=== PATIENT | male | born 1980 | race Caucasian/White ===

== ENCOUNTER 2016-12-08 07:58 | Emergency (ER) | payer OTHER | END 2016-12-08 10:01 | disposition home or self-care (01) | LOC: D.ER 07:58 | DX: M25.522 Pain in left elbow (principal); M25.532 Pain in left wrist; M25.562 Pain in left knee; M25.561 Pain in right knee; M25.572 Pain in left ankle and joints of left foot; M25.571 Pain in right ankle and joints of right foot; M54.5 Low back pain ==

== ENCOUNTER 2016-12-23 07:34 | Emergency (ER) | payer OTHER | END 2016-12-23 09:15 | disposition home or self-care (01) | LOC: D.ER 07:34 | DX: J02.9 Acute pharyngitis, unspecified (principal) ==

== ENCOUNTER 2016-12-24 09:29 | Emergency (ER) | payer OTHER | END 2016-12-24 10:21 | disposition home or self-care (01) | LOC: D.ER 09:29 | DX: T36.0X5A Adverse effect of penicillins, initial encounter (principal); T40.2X5A Adverse effect of other opioids, initial encounter; Y92.029 Unspecified place in mobile home as the place of occurrence of the external cause; J06.9 Acute upper respiratory infection, unspecified ==

== ENCOUNTER 2017-01-26 11:57 | Emergency (ER) | payer MEDICAID | END 2017-01-26 13:52 | disposition home or self-care (01) | LOC: D.ER 11:57 | DX: K52.9 Noninfective gastroenteritis and colitis, unspecified (principal); R10.9 Unspecified abdominal pain; F17.200 Nicotine dependence, unspecified, uncomplicated ==

== ENCOUNTER 2017-01-29 07:36 | Emergency (ER) | payer MEDICAID | END 2017-01-29 08:40 | disposition home or self-care (01) | LOC: D.ER 07:36 | DX: R19.7 Diarrhea, unspecified (principal); K08.89 Other specified disorders of teeth and supporting structures ==

== ENCOUNTER 2020-05-05 12:44 | Emergency (ER) | payer MEDICARE, MEDICAID ==
[~2020-05-05] VITALS: Ht 172.7 cm; Wt 104.5 kg
[2020-05-05 12:51] VITALS: Ht 172.7 cm; Wt 104.5 kg
[2020-05-05] MEDS ORDERED: HYDROCODON-ACE1 EA10 PO (12:54)
[2020-05-05] MEDS ORDERED: ULTRAM50 MG PO (12:55)
[2020-05-05 13:17] LABS: BASOPHILS 0.1 % (0-2); EOSINOPHILS 2.4 % (0-7); HEMOGLOBIN 15.1 g/dL (13.5-17.5); IMMATURE GRANULOCYTES 0.2 % (0-5); LYMPHOCYTE ABS# 2.25 10x3/uL (1.32-3.57); LYMPHOCYTES 25.4 % (15-50); MCH 27.1 pg (26.0-34.0); MCHC 32.8 g/dL (31.0-37.0); MCV 82.6 fL (80.0-100.0); MEAN PLATELET VOLUME 10.9 fL (7.4-10.4); MONOCYTES 7.4 % (2-11); NEUTROPHIL ABS# 5.71 10x3/uL (1.78-5.38); NEUTROPHILS 64.5 % (40-80); PLATELET COUNT 193 10x3/uL (130-400); RBC 5.57 10x6/uL (4.20-6.10); RDW 13.1 % (11.5-14.5); WBC 8.9 10x3/uL (4.8-10.8)
[2020-05-05 13:21] LABS: INR 1.06 (0.85-1.17); PROTIME 12.7 SECONDS (11.6-15.0)
[2020-05-05 13:22] LABS: D-DIMER-QUANTITATIVE < 0.27 ug/mLFEU (0.20-0.54)
[2020-05-05 13:39] LABS: CALC OSMOLALITY 278 mosm/kg (275-300); CALCIUM 9.1 mg/dL (8.5-10.1); CARBON DIOXIDE 24.5 mmol/L (21.0-32.0); CHLORIDE - SERUM 102 mmol/L (98-107); CREATININE - SERUM 1.3 mg/dL (0.6-1.3); GLUCOSE 153 mg/dL (74-106); POTASSIUM - SERUM 3.9 mmol/L (3.5-5.1); SODIUM 137 mmol/L (136-145); UREA NITROGEN 18 mg/dL (7-18); eGFR NON AFRICAN AMERICAN 65 mL/min (90-120)
[2020-05-05 13:55] LABS: ALBUMIN 3.9 g/dL (3.4-5.0); ALKALINE PHOSPHATASE 98 U/L (30-120); ALT (SGPT) 122 U/L (10-68); BILIRUBIN - TOTAL 0.43 mg/dL (0.2-1.3); CKMB 0.2 U/L (0.0-3.6); CREATINE KINASE 93 UL (21-232); TROPONIN-I < 0.017 ng/mL (0.000-0.060)
[2020-05-05 14:03] VITALS: BP 130/96
[2020-05-05] MEDS ORDERED: HYDROCODONE-AC1 EAC2 PO (16:31)
== END 2020-05-05 16:55 | disposition home or self-care (01) ==
LOC: D.ER 12:44
PROVIDERS: Family Medicine
DX: I71.2 Thoracic aortic aneurysm, without rupture (principal); R07.89 Other chest pain; I10 Essential (primary) hypertension; J45.909 Unspecified asthma, uncomplicated; Z72.0 Tobacco use

== ENCOUNTER → 2020-05-21 13:06 | Outpatient (CLI) | payer MEDICARE ==
[2020-05-05 12:51] VITALS: BMI 35.0
--- NOTE | ~2020-05-21 | ST ---
PATIENT:JUDIT CAMPOS MEDICAL RECORD: [id number] SEX: M LOCATION:[facility] ORDER #: ADMISSION DATE: 05/21/20 AGE OF PATIENT: 39 REFERRING PHYSICIAN: INTERPRETING PHYSICIAN: KAHLIL SANTIAGO MD DATE OF SERVICE: 05/21/2020 PROCEDURE: Treadmill stress test. Baseline ECG is normal. Exercised for 4 minutes on Herminio protocol. Maximum heart rate 142 beats per minute, less than 85% max predicted. No ECG changes of ischemia. No symptoms of ischemia. Test terminated due to arthritic pain. IMPRESSION: Indeterminate treadmill stress test. Consider Cardiolite stress testing if clinically indicated. TRANSINT:[id number] Voice Confirmation ID: [id number] DOCUMENT ID: [id number] KAHLIL SANTIAGO MD CC: [id number] DICTATION DATE: 05/22/20 08 VENDING ENTERPRISES SUPERVISOR: 05/22/20 0932 DEP CLI 05/21/20 [id number] [place] [address]
--- NOTE | ~2020-05-21 | EC ---
PATIENT:JUDIT CAMPOS DATE OF SERVICE: 05/21/20 SEX: M MEDICAL RECORD: [id number] DATE OF : 82 [facility] AGE OF PATIENT: 39 ADMISSION DATE: 05/21/20 REFERRING PHYSICIAN: INTERPRETING PHYSICIAN: KAHLIL SANTIAGO MD ECHOCARDIOGRAM REPORT ECHO CHARGES 4 ECHO COMPLETE Date: 05/21/20 CLINICAL DIAGNOSIS: HEART MURMUR ECHOCARDIOGRAPHIC MEASUREMENTS (adult normal given) AC root (d.<3.7cm) 3.2 cm LV Septum d (<1.2 cm> 1.1 cm Valve Excursion 1.8 cm LV Septum (systole) 1.7 cm Left Atria (s.<4.0cm> 3.7 cm LVPW d(<1.2cm) 1.4 cm RV (d.<2.3cm) 4.0 cm LVPW (sytole) 1.8 cm LV diastole(<5.6CM) 4.9 cm MV E-F(>70mm/sec) cm LV systole 2.5 cm LVOT Diameter 2.2 cm MV exc.(>10mm) 1.4 cm Est.ejection fraction (50-75%) % DOPPLER: LVIT cm/sec A 62.0 cm/sec E 67.0 cm/sec LA cm/sec RVSP 29 mmHg LVOT 89 cm/sec AOP1/2T m/s Asc. Ao 158 cm/sec RVOT cm/sec RA cm/sec PA 138 cm/sec AV Gradient Peak 9.99 mmHg AV Mean 5.47 mmHg AV Area 2.6 cm MV Gradient Peak 2.69 mmHg MV Mean 0.86 mmHg MV Area cm COMMENTS: Supervisor Air Conditioning Installer: 2 ELVER DOWNING Business Continuity Manager: 3 Dr. Cook TAPE# PACS Pericardial Effusion N DATE OF SERVICE: Adequate 2D, color-flow imaging, spectral Doppler, and M-Mode FINDINGS: Borderline LVH. LV internal dimension is normal. Wall motion is normal. EF is greater than or equal to 55%. Aortic valve is tricuspid. No evidence of stenosis by Doppler interrogation. Left atrium is normal. Mitral valve shows no prolapse. Trace MR. Right side is grossly normal Trace TR. TRANSINT:[id number] Voice Confirmation ID: [id number] DOCUMENT ID: [id number] ECHOCARDIOGRAM REPORT [id number] ANDRES,JUDITKAHLIL LOAIZA MD CC: [id number] DICTATION DATE: 05/23/20 0852 MICA LAMINATING MACHINE FEEDER: 05/23/2017 DEP CLI 05/21/20 [address] [place] [address]
[~2020-05-21 13:06] MED LIST: HYDROCODON-ACE1 EA10 PO; HYDROCODONE-AC1 EAC2 PO; ULTRAM50 MG PO
== END | disposition home or self-care (01) ==
LOC: D.HCCECHO 13:06
PROVIDERS: ATTEND Internal Medicine Interventional Cardiology
DX: R01.1 Cardiac murmur, unspecified (principal); I71.2 Thoracic aortic aneurysm, without rupture; R07.9 Chest pain, unspecified

== ENCOUNTER → 2020-05-29 09:23 | Outpatient (CLI) | payer MEDICARE ==
[2020-05-05 12:51] VITALS: BMI 35.0
== END | disposition home or self-care (01) ==
LOC: D.HCCARDIO 09:23
PROVIDERS: ATTEND Internal Medicine Cardiovascular Disease
DX: I20.9 Angina pectoris, unspecified (principal)

== ENCOUNTER 2020-06-11 07:38 | Day surgery (SDC) | payer MEDICARE ==
[~2020-06-11] VITALS: Ht 172.7 cm; Wt 102.2 kg
--- NOTE | ~2020-06-11 | HEMODYNAMI ---
PATIENT:JUDIT CAMPOS MEDICAL RECORD: [id number] : 82 LOCATION:[facility] ADMISSION DATE: 06/11/20 Generatedon:112:48 Patient name: JUDIT CAMPOS Patient #: [id number] SSN: : 1980 Date of study: 06/11/2020 Page: Of Hemodynamic Procedure Report Patient Data Patient Demographics Procedure consent was obtained First Name: JUDIT Gender: Male Last Name: ANDRES : 1980 Middle Initial: SHANE Age: 40 year(s) Patient #: [id number] Race: Unknown Additional ID: [id number] Contact details Address: [address] [place] [address] State: [place] City: [place] Zip code: [address] Past Medical History Allergies Allergen Reaction Date Comments Reported Other allergy 06/11/2020 PCN Admission Admission Data Admission Date: 06/11/2020 Admission Time: 7:38 Lab Results Lab Result Date: 06/11/2020 Lab Result Time: 0:00 Biochemistry Name Units Result Min Max BUN mg/dl 17 --(---*)-- 7 18 Creatinine mg/dl 1.2 --(---*)-- 0.6 1.3 eGFR ml/min 72 *-(----)-- 90 120 NONAFRICAN Procedure Procedure Types Cath Procedure Diagnostic Procedure C [facility] w/Coronaries FFR/IVUS FFR Initial Aortic Root Angiography Sedation Charges Moderate Sedation 25-39 minutes PCI Procedure Coronary Stent Coronary Stent Initial Hemochron ACT Test Procedure Description Procedure Date Procedure Date: 06/11/2020 Procedure Start Time: 9:53 Procedure End Time: 10:25 Procedure Staff Name Function Shannon Fischer RN Nurse Alejo Sams MD Performing Physician Marija Carreon RT Monitor Jill Hernandez RT Scrub Procedure Data Cath Procedure Fluoroscopy Diagnostic fluoroscopy Total fluoroscopy Time: 4.2 time: 4.2 min min Diagnostic fluoroscopy Total fluoroscopy dose: 744 dose: 744 mGy mGy Contrast Material Contrast Material Type Amount (ml) Isovue 300 159 Entry Location Entry Primary Successful Side Size Upsize Upsize Entry Closure Succes sful Closure Location (Fr) 1 (Fr) 2 (Fr) Remarks Device Remarks Femoral Right 5 Fr 6 Fr Exoseal artery Short Estimated blood loss: 10 ml Diagnostic catheters Device Type Used For End Catheter Placement MULTIPACK JL 4.0 5Fr Procedure catheter DIAGNOSTIC JL 5 5Fr Procedure catheter ([id number]) MULTIPACK 3DRC 5Fr Procedure catheter MULTIPACK Pigtail 5 Fr Procedure catheter Procedure Complications No complications Procedure Medications Medication Administration Route Dosage Oxygen etCO2 Nasal cannula 2 l/min Lidocaine 2% added to field 20 Heparin Flush Bag added to field 2 bags (1000units/500ml NS) 0.9% NaCl I.V. 100 ml/hr Versed I.V. 2 mg Fentanyl I.V. 100 mcg Versed I.V. 2 mg Fentanyl I.V. 100 mcg Heparin Bolus I.V. 5000 units Integrilin (Bolus I.V. 9 ml 2mg/ml) Versed I.V. 2 mg Fentanyl I.V. 50 mcg Plavix P.O. 600 mg Hemodynamics Rest Heart Rate: 67 (bpm) Pressure Samples Time Site Value (mmHg) Purpose Heart Use Rate(bpm) 10:00 LV 112/10,8 Snapshot 82 10:00 LV 126/16,13 Pullback 82 10:00 AO 114/77(93) Pullback 82 Gradients Valve Time Site 1 Site 2 Mean SEP/DFP Peak To Heart Use (mmHg) (sec/min) Peak Rate (mmHg) (bpm) Aortic 10:00 LV AO 2 15 12 82 126/16,13 114/77(93) Calculations Valve P-P Mean Valve Index Valve Source Name Gradient Area Flow (cm2) Aortic 12 2 12 2 Snapshots Pre Cath Intra NCS Post Cath Vital Signs Time Heart Resp SPO2 etCO2 NIBP (mmHg) Rhythm Pain Sedation Rate (ipm) (%) (mmHg) Status Level (bpm) 9:43:39 68 14 99 0 137/78(96) NSR 0 (11) 10(A) , No pain 9:48:14 80 12 97 39.5 125/71(100) NSR 0 (11) 10(A) , No pain 9:52:44 73 11 95 19.3 119/72(92) NSR 0 (11) 9(A) , No pain 9:57:06 70 11 97 26.1 129/80(107) NSR 0 (11) 9(A) , No pain 10:01:37 87 13 98 28.3 137/72(119) NSR 0 (11) 9(A) , No pain 10:06:03 79 11 93 17.1 120/68(98) NSR 0 (11) 9(A) , No pain 10:10:27 84 12 92 21.6 116/60(93) NSR 0 (11) 10(A) , No pain 10:14:53 83 11 98 32.8 112/79(97) NSR 0 (11) 10(A) , No pain 10:18:53 23.1 No Cuff NSR 0 (11) 10(A) , No pain 10:22:53 0 No Cuff NSR 0 (11) 10(A) , No pain Medications Time Medication Route Dose Verified Delivered Reason Notes Effectiveness by by 9:42:28 Oxygen etCO2 2 Alejo Jenniferie used for Nasal l/min St Feliz Fishcer RN procedure cannula 9:42:37 Lidocaine 2% added 20ml Alejo Alejo for local to vial [facility] anesthetic field MD GOMEZ 9:42:45 Heparin Flush added 2 Alejo Alejo used for Bag to bags [facility] procedure (1000units/500ml field MD GOMEZ NS) 9:42:54 0.9% NaCl I.V. 100 Alejo Jenniferie Per physician ml/hr St Feliz Fischer RN, MD 9:45:45 Versed I.V. 2 mg Alejo Buffie for sedation St Feliz Fischer RN, MD 9:45:50 Fentanyl I.V. 100 Alejo Buffie for sedation mcg St Feliz Fischer RN, MD 9:51:36 Versed I.V. 2 mg Alejo Buffie for sedation St Feliz Fischer RN, MD 9:51:39 Fentanyl I.V. 100 Alejo Buffie for sedation mcg St Feliz Fischer RN, MD 9:56:25 Versed I.V. 2 mg Alejo Buffie for sedation St Feliz Fischer RN, MD 9:56:30 Fentanyl I.V. 50 Alejo Buffie for sedation mcg St Feliz Fischer RN, MD 10:03:30 Heparin Bolus I.V. 5000 Alejo Buffie for verif ied units St Feliz Fischer RN anticoagulation with dr MD villeda 10:05:09 Integrilin I.V. 9 ml Alejo Ortega for Waste d 1 (Bolus 2mg/ml) St Feliz Fischer RN antiplatelet ml of MD therapy vial 10:16:38 Plavix P.O. 600 Alejo Ortega for mg St Feliz Fischer RN antiplatelet MD therapy Procedure Log Time Note 9:11:14 Informed consent obtained and on chart 9:16:18 Procedure Status Elective Heart Cath (OP). 9:16:20 Shannon Fischer RN sent for patient. Start room use. 9:27:57 Use device set Femoral Dx 9:27:58 ACIST Syringe (14735) opened to sterile field. 9:27:59 Medline Cath Pack ([id number]) opened to sterile field. 9:27:59 Bag Decanter (2002S) opened to sterile field. 9:28:01 ACIST Manifold (54579) opened to sterile field. 9:28:01 ACIST Hand Control (47438) opened to sterile field. 9:28:02 DIAGNOSTIC Multipack 5Fr catheter set (YZ6175) opened to sterile field. 9:28:10 SHEATH 5FR Pickton (YZD581) opened to sterile field. 9:28:11 EMERALD Guide Wire (587-355) opened to sterile field. 9:28:13 Tegaderm 4 x 4 (1626W) opened to sterile field. 9:28:23 Time tracking: Regular hours (M-F 7:00 - 5:00) 9:28:28 Plan of Care:Hemodynamics will remain stable., Cardiac rhythm will remain stable., Comfort level will be maintained., Respiratory function will remain adequate., Patient/ family verbilizes understanding of procedure., Procedure tolerated without complication., Recovers from procedure without complications.. 9:28:35 Patient received from Pre/Post Procedure Room to CCL 1 Alert and oriented. Tansferred to table in Supine position. 9:35:01 Warm blankets applied, and rene hugger turned on for patient comfort. 9:35:02 Correct patient and procedure confirmed by team. 9:35:03 ECG and BP/O2 sat monitors applied to patient. 9:35:24 H&P Date Dictated: 06/09/2020 Within 30 days and on chart., H&P Addendum completed by physician on day of procedure. (MUST COMPLETE FOR ALL OUTPATIENTS). 9:35:27 Pre-procedure instructions explained to patient. 9:35:29 Family unavailable. 9:35:31 Patient NPO since Midnight. 9:35:44 Patient allergic to Other allergyPCN 9:35:48 Is the patient allergic to Iodine/contrast media? No. 9:35:55 Was the patient premedicated? Yes 9:36:03 Is patient on blood thinner?No 9:36:47 Patient diabetic? No. 9:36:54 Snore? No 9:36:55 Sleep apnea? No 9:36:59 Dentures? No ? 9:37:05 Patient pain scale 0/10 ?. 9:37:17 IV patent on arrival in left forearm with 0.9% NaCl at O. 9:37:49 Lab Result : eGFR NONAFRICAN 72 ml/min 9:37:49 Lab Result : Creatinine 1.2 mg/dl 9:37:49 Lab Result : BUN 17 mg/dl 9:37:54 Lab results completed and on chart. 9:38:03 Stress Test: yes; abnormal inferior, apical 9:42:17 Vital chart was started 9:42:18 Right groin area was prepped with chlora-prep and draped in sterile fashion 9:42:20 Alarms reviewed by R. N. 9:42:22 Sharps counted by scrub and verified by R.N. 9:42:28 Oxygen 2 l/min etCO2 Nasal cannula was administered by Shannon Fischer RN; used for procedure; Verbal order read back and verified. 9:42:33 --------ALL STOP TIME OUT------ 9:42:33 Physician arrived 9:42:37 Lidocaine 2% 20ml vial added to field was administered by Alejo Sams MD; for local anesthetic; Verbal order read back and verified. 9:42:45 Heparin Flush Bag (1000units/500ml NS) 2 bags added to field was administered by Alejo Sams MD; used for procedure; Verbal order read back and verified. 9:42:54 0.9% NaCl 100 ml/hr I.V. was administered by Shannon Fischer RN; Per physician; Verbal order read back and verified. 9:42:59 Baseline sample Acquired. 9:43:02 Rhythm: sinus rhythm 9:43:04 Full Disclosure recording started 9:43:22 Final Timeout: patient, procedure, and site verified with staff and physician. All members of the team are in agreement. 9:43:24 Right groin site verified by team. 9:43:29 Fire Safety Assessment: A--An alcohol-based skin anteseptic being used preoperatively., C--Open oxygen or nitrous oxide is being used., D--An ESU, laser, or fiber-optic light is being used. 9:43:36 Physical assessment completed. ASA score P 3 - A patient with severe systemic disease as per Alejo Sams MD. 9:43:41 2) 60-89 Mildly reduced kidney function, and other findings (as for stage 1) point to kidney disease. 9:43:46 Maximum allowable contrast dose (3.7 X eGFR X 0.75)199 ml. 9:43:59 Sedation plan: IV Moderate Sedation Medication:Versed, Fentanyl 9:45:45 Versed 2 mg I.V. was administered by Shannon Fischer RN; for sedation; Verbal order read back and verified. 9:45:50 Fentanyl 100 mcg I.V. was administered by Shannon Fischer RN; for sedation; Verbal order read back and verified. 9:51:36 Versed 2 mg I.V. was administered by Shannon Fischer RN; for sedation; Verbal order read back and verified. 9:51:39 Fentanyl 100 mcg I.V. was administered by Shannon Fischer RN; for sedation; Verbal order read back and verified. 9:53:05 Procedure started. 9:53:15 Local anesthetic to right femoral artery with Lidocaine 2% by Alejo Sams MD.INITIAL ACCESS ONLY 9:53:24 A 5 Fr sheath was inserted into the Right Femoral artery 9:54:40 A MULTIPACK JL 4.0 5Fr catheter was advanced over the wire and used for Procedure. 9:55:15 Catheter removed. 9:55:36 A DIAGNOSTIC JL 5 5Fr catheter ([id number]) was advanced over the wire and used for Procedure. 9:56:25 Versed 2 mg I.V. was administered by Shannon Fischer RN; for sedation; Verbal order read back and verified. 9:56:30 Fentanyl 50 mcg I.V. was administered by Shannon Fischer RN; for sedation; Verbal order read back and verified. 9:56:43 LCA angiography performed. 9:58:36 Catheter removed. 9:58:44 A MULTIPACK 3DRC 5Fr catheter was advanced over the wire and used for Procedure. 9:58:48 RCA angiography performed. 9:58:50 Catheter removed. 9:58:56 A MULTIPACK Pigtail 5 Fr catheter was advanced over the wire and used for Procedure. 10:00:30 EF : 55 % 10:00:32 Aortic Root visualized 10:01:32 SHEATH 6FR [place] (LYA138) opened to sterile field. 10:01:33 [place] OmniWire (39898) opened to sterile field. 10:01:34 GUIDE 6FR JL 5.0 catheter ([id number]) opened to sterile field. 10:01:34 INFLATOR Merit BasixCompak (OA6384) opened to sterile field. 10:01:45 Catheter removed. 10:01:47 Proceeding to intervention. 10:01:57 Sheath upsized to a 6 Fr Short. 10:02:07 6 Fr JL5 guide catheter was inserted over the wire 10:03:30 Heparin Bolus 5000 units I.V. was administered by Shannon Fischer RN; for anticoagulation; verified with dr villeda Verbal order read back and verified. 10:04:40 Zero performed for pressure channel P1 10:05:02 omni wire advanced. 10:05:09 Integrilin (Bolus 2mg/ml) 9 ml I.V. was administered by Shannon Fischer RN; for antiplatelet therapy; Wasted 1 ml of vial Verbal order read back and verified. 10:06:38 Wire advanced across lesion. 10:11:35 Place stent Inflation Number: 1 A INTEGRITY RX 3.5 x 15 stent ([id number]) was prepped and advanced across the Prox LAD 80. The stent was deployed at 14 MIRELLA for 0:28 (min:sec) . 10:12:02 Stent catheter was removed intact over wire. 10:13:32 pLAD pos measured .90 with IFR 10:16:38 Plavix 600 mg P.O. was administered by Shannon Fischer RN; for antiplatelet therapy; Verbal order read back and verified. 10:18:09 ACT drawn and resulted at 234 seconds. (normal therapeutic range 180-240 seconds). 10:18:23 EXOSEAL 6Fr (EX600) opened to sterile field. 10:19:31 Procedure ended.(Physican Out) 10:20:17 Sheath removed intact; hemostasis achieved with Exoseal to the Right Femoral artery. 10:20: Fluoroscopy time 04.20 minutes. 10:: Flurop Dose total: 744 10:: Fluoroscopy dose: 744 mGy 10:: Dose Area Product 89650 mGy/cm. 10:20:58 Contrast amount:Isovue 300 159ml. 10:21:02 Maximum allowable dose exceeded? No. 10:21:03 Sharps counted by scrub and verified by R.N. 10:21:06 Insertion/operative site no bleeding no hematoma. 10:21:11 Post-op/insertion site Right Femoral artery dressed using a 4 x 4 and Tegaderm. 10:21:12 Post Procedure Pulses reassessed and unchanged 10::17 Post-procedure physical assessment completed. ASA score P 3 - A patient with severe systemic disease as per Alejo Sams MD. 10:21:20 Post procedure rhythm: sinus rhythm 10::23 Estimated blood loss: 10 ml 10:21:25 Post procedure instruction explained to patient.Patient verbalizes understanding. 10:23:09 Procedure type changed to Cath procedure, Diagnostic procedure, LHC, C w/Coronaries, FFR/IVUS, FFR Initial, Aortic Root Angiography, Sedation Charges, Moderate Sedation 25-39 minutes, PCI procedure, Coronary Stent, Coronary Stent Initial, Hemochron ACT Test 10:23:12 Procedure and supply charges have been captured, reviewed, submitted and are correct. 10:23:52 Procedure and supply charges have been captured, reviewed, submitted and are correct. 10:25:27 Procedure Complication : No complications 10:25:32 Vital chart was stopped 10:25:36 [facility] Findings: MVD- PCI performed (see procedure note) 10:25:43 Operative report dictated upon procedure completion. 10:25:44 See physician's report for complete and final results. 10:25:46 Report given to Pre/Post Procedure Room. 10:25:48 Patient transfered to Pre/Post Procedure Room with Stretcher. 10:25:50 Full Disclosure recording stopped 10:25:50 Procedure ended. 10:25:53 End room use (Document Last) 10:25:58 ACC-PCI Only Patient was given prescriptions, or instructed by Shannon Fischer RN to start/continue the following medications upon discharge: Plavix Intervention Summary Intervention Notes Time ActionType Lesion and Equipment Action# Pressure Duration Attributes Used 10:11:35 Place stent Prox LAD INTEGRITY RX 1 14 00:28 3.5 x 15 stent ([id number]) Device Usage Item Name Manufacture Quantity Catalog Hospital Part Current Minimal Lot# / Number Charge Number Stock Stock Serial# Code ACIST Acist 1 00888 854740 855196 033375 20 Syringe Medical (37648) Systems Inc Bag Decanter Microtek 1 2001S 252080 38848 629659 5 (2001S) Medical Inc. Medline Cath Medline 1 [id number] 754806 53789 333696 5 Pack ([id number]) ACIST Hand Acist 1 81167 283125 953536 296000 5 Control Medical (79031) Systems Inc ACIST Acist 1 66433 198817 505420 448667 5 Manifold Medical (56423) Systems Inc DIAGNOSTIC Cardinal 1 [id number] 373823 82679 695953 30 Multipack Health 5Fr catheter set (AE2972) SHEATH 5FR Terumo 1 OCR238 927907 353464 852522 5 [place] (SYD553) EMERALD Cardinal 1 502-455 578663 259990 659735 5 Guide Wire Health (502-455) Tegaderm 4 x 3M 1 1626W 996337 144170 846528 5 4 (1626W) MULTIPACK JL Cardinal 1 530356 5 4.0 5Fr Health catheter DIAGNOSTIC Cardinal 1 [id number] 219077 280413 522973 5 JL 5 5Fr Health catheter (879691H) MULTIPACK Cardinal 1 006550 5 3DRC 5Fr Health catheter MULTIPACK Cardinal 1 575752 5 Pigtail 5 Fr Health catheter SHEATH 6FR Terumo 1 XOQ770 373832 967959 718222 40 Pickton (HXS668) [place] 1 0254804 526568 23370 9984 5 OmniWire (93612) INFLATOR Merit 1 CB3423 505460 676580 055271 15 SquareTrade Medical BasixCompak (GQ6183) GUIDE 6FR JL Medtronic 1 [id number] 688820 94559 110634 1 5.0 catheter ([id number]) INTEGRITY RX Medtronic 1 [id number] 000621 019539 016358 5 [id number] 3.5 x 15 stent ([id number]) EXOSEAL 6Fr Cardinal 1 EX600 487939 869931 297219 10 (EX600) Health Signature Audit [place] Stage Time Signature Unsigned Intra-Procedure 06/11/2020 Marija Lauri 10:23:52 AM RT(R) Intra-Procedure 06/11/2020 Shannon Fischer RN 10:26:18 AM Intra-Procedure 06/11/2020 Alejo Sams MD 10:26:55 AM Feliz GOMEZ 06/11/2020 12:47:05 PM Intra-Procedure 06/11/2020 Alejo Bedolla 12:48:23 PM Feliz GOMEZ [address] [place] [address]
[2020-06-11] MEDS ORDERED: PRAVASTATIN SOD10 MG PO (08:29)
[2020-06-11] MEDS ORDERED: PROTONIX40 MG PO (08:30)
[2020-06-11] MEDS ORDERED: DICLOFENAC SOD100 MG PO (08:30)
[2020-06-11] MEDS ORDERED: ULTRAM50 MG PO (08:31)
[2020-06-11 08:35] VITALS: BP 127/79; Ht 172.7 cm; Wt 102.2 kg
[2020-06-11 09:09] LABS: CALCIUM 8.9 mg/dL (8.5-10.1); CARBON DIOXIDE 25.1 mmol/L (21.0-32.0); CHOL - HDL RATIO 4.9 ratio (2.3-4.9); CREATININE - SERUM 1.2 mg/dL (0.6-1.3); POTASSIUM - SERUM 4.1 mmol/L (3.5-5.1)
[2020-06-11 09:55] LABS: BASOPHILS 0.3 % (0-2); EOSINOPHILS 4.6 % (0-7); HEMATOCRIT 42.7 % (42.0-54.0); HEMOGLOBIN 13.8 g/dL (13.5-17.5); IMMATURE GRANULOCYTES 0.3 % (0-5); LYMPHOCYTE ABS# 1.98 10x3/uL (1.32-3.57); LYMPHOCYTES 28.3 % (15-50); MCH 27.1 pg (26.0-34.0); MCHC 32.3 g/dL (31.0-37.0); MCV 83.7 fL (80.0-100.0); MEAN PLATELET VOLUME 11.2 fL (7.4-10.4); MONOCYTES 9.7 % (2-11); NEUTROPHIL ABS# 3.98 10x3/uL (1.78-5.38); NEUTROPHILS 56.8 % (40-80); PLATELET COUNT 183 10x3/uL (130-400); RDW 13.5 % (11.5-14.5)
--- NOTE | 2020-06-11 10:31 | NUR ---
PT RESTING COMFORTABLY. VSS AT THIS TIME. CALL LIGHT WITHIN REACH. RIGHT GROIN DRESSING C/D/I. NO S/S OF HEMATOMA NOTED. RIGHT PEDAL PULSE PALPABLE. PT C/O INDIGESTION FROM PLAVIX. GIVEN SIPS OF SODA AND THIS HELPED.
[2020-06-11] MEDS ORDERED: PLAVIX75 MG PO (10:42)
[2020-06-11] MEDS ORDERED: BAYER CHEWABLE81 MG PO (10:42)
[2020-06-11] MEDS ORDERED: LIPITOR20 MG PO (10:42)
--- NOTE | 2020-06-11 10:45 | NUR ---
PT RESTING COMFORTABLY. VSS. RIGHT GROIN DRESSING C/D/I .NO S/S OF HEMATOMA NOTED. CALL LIGHT WITHIN REACH.
--- NOTE | 2020-06-11 11:15 | NUR ---
RIGHT GROIN DRESSING C/D/I. NO S/S OF HEMATOMA NOTED. VSS AT THIS TIME. PT RESTING COMFORTABLY. RIGHT PEDAL PULSE PALPABLE.
--- NOTE | 2020-06-11 12:00 | NUR ---
PT RESTING COMFORTABLY. VSS. RIGHT GROIN DRESSING C/D/I. NO S/S OF HEMATOMA NOTED. CALL LIGHT WITHIN REACH. FAMILY AT BEDSIDE. RIGHT PEDAL PULSE PALPABLE.
--- NOTE | 2020-06-11 12:30 | NUR ---
RIGHT GROIN DRESSING C/D/I. NO S/S OF HEMATOMA NOTED. CALL LIGHT WITHIN REACH. VSS AT THIS TIME. RIGHT PEDAL PULSE PALPABLE. FAMILY AT BEDSIDE.
--- NOTE | 2020-06-11 13:10 | NUR ---
RIGHT GROIN DRESSING C/D/I. NO S/S OF HEMATOMA NOTED. HEAD OF BED INC TO 30 DEGREES. TOLERATED WELL. SET UP WITH SANDWICH TRAY AND DRINK. DENIES NAUSEA/PAIN AT THIS TIME. CALL LIGHT WITHIN REACH. FAMILY AT BEDSIDE.
--- NOTE | 2020-06-11 13:34 | NUR ---
PT VOIDED 250cc OF CLEAR YELLOW URINE IN URINAL. RIGHT GROIN DRESSING C/D/I. NO S/S OF HEMATOMA NOTED. PIV D/C'D WITH CATH TIP INTACT. TOLERATED WELL. PT INSTRUCTED TO GET UP AND DRESSED AT THIS TIME. NO ASSISTANCE NEEDED. CALL LIGHT WITHIN REACH.
--- NOTE | 2020-06-11 13:40 | NUR ---
DISCUSSED DISCHARGE INSTRUCTIONS WITH PT AND PT'S MOTHER. THEY VOICED UNDERSTANDING.
--- NOTE | 2020-06-11 13:54 | NUR ---
RIGHT GROIN DRESSING C/D/I. NO S/S OF HEMATOMA NOTED. PT TAKEN OUT TO VEHICLE BY WHEELCHAIR. NO S/S OF DISTRESS NOTED. ALL BELONGINGS AND PAPERWORK IN HAND.
--- NOTE | 2020-06-12 14:15 | OP ---
PATIENT NAME: JUDIT CAMPOS MEDICAL RECORD: [id number] :82 LOCATION:D.[facility] ADMISSION DATE: SURGEON: KAHLIL SANTIAGO MD DATE OF OPERATION: 06/11/2020 PROCEDURES: Left heart catheterization, selective coronary angiography, plus stenting to the LAD, plus IFR of the LAD, plus aortic root injection, right femoral artery approach. CATHETERS: A 5-Lithuanian sheath, 5/4 left and right Gee, 5/4 pig. The procedure was well tolerated. The patient was returned to the correa. Sheath removed. ExoSeal device. FINDINGS: Left ventriculography in 30-degree PINK view; normal wall motion, normal systolic function. Aortic root injection was performed that showed obvious ascending thoracic aneurysm without evidence of dissection or thrombus confirmed in 2 views. CORONARY ANATOMY: LEFT MAIN: Left main is free of disease. LAD: Has a fairly discrete 80% stenosis in its proximal third with takeoff of the diagonal. CIRCUMFLEX: Free of disease. RIGHT CORONARY ARTERY: Dominant, free of disease. PLAN: IFR intervention of LAD with CAD momentarily. DESCRIPTION OF PROCEDURE: A 5-Lithuanian sheath was exchanged for a 6-Lithuanian sheath. A JL5 guiding catheter due to aortic root dilatation was used. We then placed the IFR wire down past the 80% stenosed LAD down this portion of the vessel. Stent deployed was a 3.5 x 15 mm Integrity nondrug-eluting stent up to 14 atmospheres. Post-FFR showed resolution with good flow with a IFR greater than 0.9. Sheath was closed with ExoSeal device. Plavix was loaded in the lab. TRANSINT:[id number] Voice Confirmation ID: [id number] DOCUMENT ID: [id number] KAHLIL SANTIAGO MD at 1415 CC: [id number] DICTATION DATE: 06/11/20 1021 STOGIE PACKER: 06/11/20 1659 [facility] 06/11/[address] [address]
== END 2020-06-11 13:54 | disposition home or self-care (01) ==
LOC: D.CATH 07:38
PROVIDERS: ATTEND Internal Medicine Interventional Cardiology
DX: R07.9 Chest pain, unspecified (principal); I20.9 Angina pectoris, unspecified; R94.30 Abnormal result of cardiovascular function study, unspecified; I10 Essential (primary) hypertension; I73.9 Peripheral vascular disease, unspecified